=== PATIENT | female | born 1955 | race Asian ===

== ENCOUNTER → 2016-03-03 | Outpatient (CLI) | payer MEDICAID ==
--- NOTE | 2016-03-03 17:58 | MA ---
Screening Digital Mammogram With iCAD Analysis Reason for Examination: Routine screening. Breast parenchymal density: Type B; Scattered fibroglandular densities. Technique: Four views of each breast are obtained including CC and oblique lateral Harjinder (implant di splaced) and non-Harjinder (implant not displaced) views. Images were reviewed using the iCAD computer a ided detection system. Comparison: January 2015, March 2014, March 2013, October 2011, October 2010, November 05. Findings: Breast implants are in place bilaterally. iCAD is reviewed.No suspicious areas are identifi ed. There has been no significant change in the appearance of either breast. Breast implants diminish the sensitivity of mammography. Impression: Negative mammogram. BI-RADS 1. Recommendation: Routine screening is recommended in one year as long as physical examination is negat hayder. [facility] will send a result letter to the patient. Negative mammography should not preclude additional workup of a clinically suspicious finding. The patient's information is entered into a reminder system with a target due date for her next mammo gram.
== END ==
LOC: BRMIMAGING 13:56
DX: Z12.31 Encounter for screening mammogram for malignant neoplasm of breast (principal)
CPT/HCPCS: G0202

== ENCOUNTER → 2016-07-23 | Outpatient (CLI) | payer MEDICAID | LOC: BRMIMAGING 08:35 | PROVIDERS: ATTEND Internal Medicine | DX: B18.1 Chronic viral hepatitis B without delta-agent (principal) | CPT/HCPCS: 76705-PO ==

== ENCOUNTER → 2017-03-05 | Outpatient (CLI) | payer MEDICAID | LOC: BRMIMAGING 08:40 | PROVIDERS: ATTEND Internal Medicine | DX: B18.1 Chronic viral hepatitis B without delta-agent (principal) | CPT/HCPCS: 76705-PO ==

== ENCOUNTER → 2017-03-06 | Outpatient (CLI) | payer MEDICAID | LOC: CIMAGING 10:38 | PROVIDERS: ATTEND Registered Nurse | DX: Z12.31 Encounter for screening mammogram for malignant neoplasm of breast (principal) ==

== ENCOUNTER → 2017-08-28 | Outpatient (CLI) | payer MEDICAID | LOC: BRMIMAGING 07:53 | PROVIDERS: ATTEND Internal Medicine | DX: B18.1 Chronic viral hepatitis B without delta-agent (principal) | CPT/HCPCS: 76705-PO ==

== ENCOUNTER → 2018-03-10 | Outpatient (CLI) | payer MEDICAID | LOC: BRMIMAGING 08:43 | PROVIDERS: ATTEND Internal Medicine | DX: B18.1 Chronic viral hepatitis B without delta-agent (principal) | CPT/HCPCS: 76705-PO ==

== ENCOUNTER → 2018-03-16 | Outpatient (CLI) | payer MEDICAID | LOC: BRMIMAGING 08:13 | PROVIDERS: ATTEND Physician Assistant | DX: Z12.31 Encounter for screening mammogram for malignant neoplasm of breast (principal) ==